=== PATIENT | female | born 1965 | race African-American/Black ===

== ENCOUNTER 2017-10-22 17:12 | Emergency (ER) | payer OTHER ==
[~2017-10-22] VITALS: Ht 162.6 cm; Wt 60.0 kg
[2017-10-22] MEDS ORDERED: METF500T4 PO (17:18)
[2017-10-22] MEDS ORDERED: SODIUM CHLORIDE 0.9% 1,000 ML IV ONE (18:09)
[2017-10-22] MEDS ORDERED: FAMOTIDINE 20MG/2ML VIAL IV ONE (18:15)
[2017-10-22] MEDS ORDERED: METHYLPREDNISOLONE SOD SUCC 125 MG/2 ML VIAL IV ONE (18:15)
[2017-10-22] MEDS ORDERED: DIPHENHYDRAMINE 50MG/ML VIAL IV ONE (18:15)
[2017-10-22 18:45] LABS: BASOPHILS % 0.1 % (0.0-2.0); EOSINOPHILS % 0.2 % (0.0-5.0); HEMOGLOBIN. 12.9 g/dL (12.0-16.0); LYMPHOCYTES % 8.8 % (20.0-50.0); MEAN CORPUSCULAR HEMOGLOBIN 28.2 pg (28.0-32.0); MEAN CORPUSCULAR VOLUME 87.6 fL (81.0-99.0); MEAN PLATELET VOLUME 9.3 fl (7.4-10.4); MONOCYTES % 6.7 % (2.0-8.0); NEUTROPHILS % 84.2 % (40.0-76.0); PLATELET 205 x1000/uL (130-400); RED BLOOD CELL COUNT 4.57 mill/uL (4.2-5.4); RED CELL DISTRIBUTION WIDTH 13.3 % (11.6-14.6)
[2017-10-22 18:50] LABS: CHLORIDE 104 mEq/L (98-107)
[2017-10-22 18:56] LABS: CARBON DIOXIDE 27 mEq/L (21-32)
[2017-10-22] MEDS ORDERED: IBUPROFEN 600MG TABLET PO ONE (19:15)
[2017-10-22 19:17] VITALS: BP 129/71
== END 2017-10-22 20:30 | disposition home or self-care (01) ==
LOC: ER 17:22
DX: T78.40XA Allergy, unspecified, initial encounter (principal); E78.00 Pure hypercholesterolemia, unspecified; E11.9 Type 2 diabetes mellitus without complications; Z88.0 Allergy status to penicillin
CPT/HCPCS: 36415; 80048; 85025; 96361; 96374; 96375; 99285; J1200; J2930; J3490; J7030

== ENCOUNTER 2017-12-10 11:50 | Inpatient (IN) | payer BC, OTHER ==
[~2017-12-10] VITALS: Ht 157.5 cm; Wt 62.6 kg
[~2017-12-10 11:50] MED LIST: METF500T4 PO
[2017-12-10] MEDS ORDERED: MORPHINE SULFATE 4 MG/ML CPJ (NOT FOR IM USE) IV STA ×2 (12:40→16:29)
[2017-12-10] MEDS ORDERED: ONDANSETRON HCL 4MG/2ML VIAL IV STA ×2 (12:40→16:29)
[2017-12-10 13:20] LABS: BASOPHILS % 0.3 % (0.0-2.0); EOSINOPHILS % 0.6 % (0.0-5.0); HEMATOCRIT. 42.1 % (36.0-48.0); HEMOGLOBIN. 13.4 g/dL (12.0-16.0); LYMPHOCYTES % 7.3 % (20.0-50.0); MEAN CORPUSCULAR HEMOGLOBIN 27.6 pg (28.0-32.0); MEAN CORPUSCULAR VOLUME 86.6 fL (81.0-99.0); MEAN PLATELET VOLUME 9.6 fl (7.4-10.4); MONOCYTES % 10.6 % (2.0-8.0); NEUTROPHILS % 81.2 % (40.0-76.0); PLATELET 250 x1000/uL (130-400); RED BLOOD CELL COUNT 4.86 mill/uL (4.2-5.4); RED CELL DISTRIBUTION WIDTH 12.6 % (11.6-14.6)
[2017-12-10 13:26] LABS: PROTHROMBIN TIME 10.7 sec (9.4-11.6)
[2017-12-10] MEDS ORDERED: LEVOFLOXACIN 750MG PREMIX 150 ML IV ONE (13:30)
[2017-12-10 14:06] LABS: CARBON DIOXIDE 26 mEq/L (21-32); CHLORIDE 97 mEq/L (98-107); TROPONIN I < 0.02 ng/mL (0.00-0.04)
[2017-12-10 14:13] LABS: BETA HYDROXYBUTYRATE 2.3 mMol/L (0.0-0.3)
[2017-12-10] MEDS ORDERED: SODIUM CHLORIDE 0.9% 1,000 ML IV NR ×2 (14:47)
[2017-12-10 23:30] VITALS: BP 147/84
[2017-12-10] MEDS ORDERED: INSU100I22 SQ (23:57)
[2017-12-10] MEDS ORDERED: CRESTOR PO (23:57)
[2017-12-10] MEDS ORDERED: IBUP-2030 PO (23:58)
[2017-12-11 00:45] VITALS: BP 147/84
[2017-12-11] MEDS ORDERED: IPRATROPIUM/ALBUTEROL 0.5-3(2.5)MG/3ML NEB INH PRN ×2 (02:30→10:45)
[2017-12-11] MEDS ORDERED: ONDANSETRON HCL 4MG/2ML VIAL IV PRN (02:30)
[2017-12-11] MEDS ORDERED: MAGNESIUM/ALUMINUM HYDROXIDE/SIMETHICONE 30ML UDC PO PRN (02:30)
[2017-12-11] MEDS ORDERED: CLONIDINE 0.1MG TABLET PO PRN (02:30)
[2017-12-11] MEDS ORDERED: DOCUSATE SODIUM 100MG CAPSULE PO PRN (02:30)
[2017-12-11] MEDS ORDERED: DEXTROSE 50% WATER 50ML SYRINGE IV PRN (03:15)
[2017-12-11] MEDS: HYDROCODONE/ACETAMINOPHEN 5/325MG TABLET PO PRN ×3 (03:43→20:02)
[2017-12-11] MEDS: SODIUM CHLORIDE 0.9% 1,000 ML IV SCH ×3 (03:47→22:51)
[2017-12-11 04:00] VITALS: BP 145/85
[2017-12-11] MEDS: BLOOD SUGAR DIAGNOSTIC STRIP TEST SCH ×4 (06:16→20:29)
[2017-12-11] MEDS: INSULIN LISPRO 100 UNITS/ML SUBCUT SCH ×4 (06:42→20:59)
[2017-12-11 08:00] VITALS: BP 122/70
[2017-12-11] MEDS: ASPIRIN 81MG EC TABLET PO SCH (08:25)
[2017-12-11] MEDS: ENOXAPARIN 40MG/0.4ML SYR SUBCUT SCH (08:25)
[2017-12-11 10:48] LABS: EOSINOPHILS % 0.1 % (0.0-5.0); HEMATOCRIT. 39.6 % (36.0-48.0); HEMOGLOBIN. 12.6 g/dL (12.0-16.0); LYMPHOCYTES % 7.1 % (20.0-50.0); MEAN CORPUSCULAR HEMOGLOBIN 27.7 pg (28.0-32.0); MEAN PLATELET VOLUME 9.6 fl (7.4-10.4); MONOCYTES % 10.4 % (2.0-8.0); NEUTROPHILS % 82.4 % (40.0-76.0); PLATELET 270 x1000/uL (130-400); RED BLOOD CELL COUNT 4.55 mill/uL (4.2-5.4); RED CELL DISTRIBUTION WIDTH 12.8 % (11.6-14.6)
[2017-12-11 12:39] VITALS: BP 126/68
[2017-12-11 13:25] LABS: CLARITY URINE CLEAR (CLEAR); COLOR URINE YELLOW (YELLOW); KETONES URINE 3+ (NEGATIVE); LEUKOCYTE ESTERASE URINE NEGATIVE (NEGATIVE); NITRITE URINE NEGATIVE (NEGATIVE); OCCULT BLOOD URINE NEGATIVE (NEGATIVE); PROTEIN URINE NEGATIVE (NEGATIVE); UROBILINOGEN URINE 0.2 E.U./dL (0.2-1.0)
[2017-12-11 13:47] LABS: *AMPHETAMINES SCREEN URINE NEGATIVE (NEGATIVE); *BARBITURATES SCREEN URINE NEGATIVE (NEGATIVE); *BENZODIAZEPINES SCREEN URINE NEGATIVE (NEGATIVE); *COCAINE SCREEN URINE NEGATIVE (NEGATIVE); CANNABINOID URINE SCREEN NEGATIVE (NEGATIVE); METHADONE URINE SCREEN NEGATIVE (NEGATIVE); OPIATES URINE SCREEN PRESUMTIVE POSITIVE (NEGATIVE); PHENCYCLIDINE URINE SCREEN NEGATIVE (NEGATIVE)
[2017-12-11] MEDS: IPRATROPIUM/ALBUTEROL 0.5-3(2.5)MG/3ML NEB HHN SCH ×2 (14:49→21:25)
[2017-12-11] MEDS: LEVOFLOXACIN 500MG PREMIX 100 ML IV SCH (14:51)
[2017-12-11 16:00] VITALS: BP 141/82
[2017-12-11 20:00] VITALS: BP 131/84
[2017-12-12] VITALS: BP 123/66
[2017-12-12] MEDS: HYDROCODONE/ACETAMINOPHEN 5/325MG TABLET PO PRN ×3 (00:09→14:48)
[2017-12-12] MEDS: IPRATROPIUM/ALBUTEROL 0.5-3(2.5)MG/3ML NEB HHN SCH ×4 (02:41→21:49)
[2017-12-12 04:00] VITALS: BP 118/71
[2017-12-12] MEDS: BLOOD SUGAR DIAGNOSTIC STRIP TEST SCH ×4 (06:15→21:12)
[2017-12-12] MEDS: INSULIN LISPRO 100 UNITS/ML SUBCUT SCH ×4 (06:42→21:30)
[2017-12-12 07:08] LABS: HEMATOCRIT. 38.9 % (36.0-48.0); HEMOGLOBIN. 12.6 g/dL (12.0-16.0); MEAN CORPUSCULAR HEMOGLOBIN 27.9 pg (28.0-32.0); MEAN CORPUSCULAR VOLUME 86.4 fL (81.0-99.0); MEAN PLATELET VOLUME 9.2 fl (7.4-10.4); PLATELET 275 x1000/uL (130-400); RED CELL DISTRIBUTION WIDTH 12.9 % (11.6-14.6)
[2017-12-12 08:00] VITALS: BP 139/76
[2017-12-12] MEDS: ASPIRIN 81MG EC TABLET PO SCH (08:14)
[2017-12-12] MEDS: ENOXAPARIN 40MG/0.4ML SYR SUBCUT SCH (08:15)
[2017-12-12 08:41] LABS: CARBON DIOXIDE 23 mEq/L (21-32); CHLORIDE 101 mEq/L (98-107); HDL CHOLESTEROL 23 mg/dL (40-59); LDL CHOLESTEROL 62 mg/dL (5-100)
[2017-12-12 09:01] LABS: PLATELET ESTIMATE NORMAL
[2017-12-12] MEDS: ACETAMINOPHEN 325MG TABLET PO PRN ×2 (11:01→21:29)
[2017-12-12 12:00] VITALS: BP 142/87
[2017-12-12] MEDS: LEVOFLOXACIN 500MG PREMIX 100 ML IV SCH (13:11)
[2017-12-12 16:00] VITALS: BP 145/96
[2017-12-12] MEDS: SODIUM CHLORIDE 0.9% 1,000 ML IV SCH (16:32)
[2017-12-12] MEDS: KETOROLAC 10MG TABLET PO PRN (17:02)
[2017-12-12 20:00] VITALS: BP 154/95
[2017-12-13] VITALS (7 sets, daily range): BP systolic 136–160; BP diastolic 80–89
[2017-12-13] MEDS: IPRATROPIUM/ALBUTEROL 0.5-3(2.5)MG/3ML NEB HHN SCH ×4 (03:09→20:40)
[2017-12-13] MEDS: KETOROLAC 10MG TABLET PO PRN ×2 (04:10→21:28)
[2017-12-13] MEDS: SODIUM CHLORIDE 0.9% 1,000 ML IV SCH ×2 (06:45→21:08)
[2017-12-13] MEDS: BLOOD SUGAR DIAGNOSTIC STRIP TEST SCH ×4 (06:45→21:11)
[2017-12-13 07:00] LABS: BASOPHILS % 0.3 % (0.0-2.0); EOSINOPHILS % 1.1 % (0.0-5.0); HEMATOCRIT. 36.8 % (36.0-48.0); HEMOGLOBIN. 12.2 g/dL (12.0-16.0); LYMPHOCYTES % 7.1 % (20.0-50.0); MEAN CORPUSCULAR HEMOGLOBIN 28.3 pg (28.0-32.0); MEAN CORPUSCULAR VOLUME 85.3 fL (81.0-99.0); MEAN PLATELET VOLUME 9.6 fl (7.4-10.4); MONOCYTES % 11.1 % (2.0-8.0); NEUTROPHILS % 80.4 % (40.0-76.0); PLATELET 276 x1000/uL (130-400); RED BLOOD CELL COUNT 4.31 mill/uL (4.2-5.4); RED CELL DISTRIBUTION WIDTH 12.8 % (11.6-14.6)
[2017-12-13] MEDS: INSULIN LISPRO 100 UNITS/ML SUBCUT SCH ×4 (07:06→21:23)
[2017-12-13 07:38] LABS: CHLORIDE 100 mEq/L (98-107)
[2017-12-13] MEDS: ENOXAPARIN 40MG/0.4ML SYR SUBCUT SCH (08:20)
[2017-12-13] MEDS: ASPIRIN 81MG EC TABLET PO SCH (08:20)
[2017-12-13 08:27] LABS: CARBON DIOXIDE 26 mEq/L (21-32)
[2017-12-13] MEDS: ACETAMINOPHEN 325MG TABLET PO PRN ×2 (09:29→18:19)
[2017-12-13] MEDS ORDERED: INSULIN GLARGINE UD 100 UNITS/ML SYR SUBCUT SCH (11:30)
[2017-12-13] MEDS: ZINC SULFATE 220 MG ( 50 ) CAPSULE PO SCH (11:40)
[2017-12-13] MEDS: LEVOFLOXACIN 500MG PREMIX 100 ML IV SCH (14:40)
[2017-12-13] MEDS: HYDROCODONE/ACETAMINOPHEN 5/325MG TABLET PO PRN (16:18)
[2017-12-13] MEDS: ASCORBIC ACID 500 MG TABLET PO SCH (21:08)
[2017-12-13] MEDS: INSULIN GLARGINE UD 100 UNITS/ML SYR SUBCUT SCH (21:11)
[2017-12-14] VITALS: BP 146/83
[2017-12-14] MEDS: IPRATROPIUM/ALBUTEROL 0.5-3(2.5)MG/3ML NEB HHN SCH ×4 (03:28→19:55)
[2017-12-14 04:00] VITALS: BP 152/88
[2017-12-14] MEDS: HYDROCODONE/ACETAMINOPHEN 5/325MG TABLET PO PRN ×2 (04:22→19:00)
[2017-12-14] MEDS: BLOOD SUGAR DIAGNOSTIC STRIP TEST SCH ×4 (06:32→21:00)
[2017-12-14] MEDS: INSULIN LISPRO 100 UNITS/ML SUBCUT SCH ×4 (06:48→22:52)
[2017-12-14 08:00] VITALS: BP 140/81
[2017-12-14] MEDS: SODIUM CHLORIDE 0.9% 1,000 ML IV SCH ×2 (09:03→22:38)
[2017-12-14] MEDS: ASPIRIN 81MG EC TABLET PO SCH (09:03)
[2017-12-14] MEDS: ZINC SULFATE 220 MG ( 50 ) CAPSULE PO SCH (09:03)
[2017-12-14] MEDS: ENOXAPARIN 40MG/0.4ML SYR SUBCUT SCH (09:03)
[2017-12-14] MEDS ORDERED: NA PHOS,M-B/NA PHOS,DI-BA ENEMA 118ML PR PRN (09:15)
[2017-12-14] MEDS: LACTULOSE 20G/30ML UDC PO SCH (09:54)
[2017-12-14 12:08] VITALS: BP 143/85
[2017-12-14] MEDS: ASCORBIC ACID 500 MG TABLET PO SCH ×2 (12:27→22:38)
[2017-12-14] MEDS: LEVOFLOXACIN 500MG PREMIX 100 ML IV SCH (13:17)
[2017-12-14] MEDS: ACETAMINOPHEN 325MG TABLET PO PRN (14:26)
[2017-12-14 16:00] VITALS: BP 146/88
[2017-12-14 20:00] VITALS: BP 145/84
[2017-12-14] MEDS: INSULIN GLARGINE UD 100 UNITS/ML SYR SUBCUT SCH (22:39)
[2017-12-14] MEDS: KETOROLAC 10MG TABLET PO PRN (22:53)
[2017-12-15] VITALS: BP 139/76
[2017-12-15] MEDS: IPRATROPIUM/ALBUTEROL 0.5-3(2.5)MG/3ML NEB HHN SCH ×4 (01:52→20:24)
[2017-12-15 04:00] VITALS: BP 148/84
[2017-12-15] MEDS: ACETAMINOPHEN 325MG TABLET PO PRN (05:02)
[2017-12-15] MEDS: BLOOD SUGAR DIAGNOSTIC STRIP TEST SCH ×4 (06:41→20:47)
[2017-12-15] MEDS: INSULIN LISPRO 100 UNITS/ML SUBCUT SCH ×4 (07:00→21:08)
[2017-12-15 08:00] VITALS: BP 139/76
[2017-12-15] MEDS: ZINC SULFATE 220 MG ( 50 ) CAPSULE PO SCH (09:42)
[2017-12-15] MEDS: ASCORBIC ACID 500 MG TABLET PO SCH ×2 (09:42→20:42)
[2017-12-15] MEDS: ASPIRIN 81MG EC TABLET PO SCH (09:42)
[2017-12-15] MEDS: LACTULOSE 20G/30ML UDC PO SCH (09:42)
[2017-12-15] MEDS: ENOXAPARIN 40MG/0.4ML SYR SUBCUT SCH (09:43)
[2017-12-15 12:00] VITALS: BP_SYST 150; BP_DIAS 81; BP_DIAS 87
[2017-12-15] MEDS: GUAIFENESIN 200MG/10ML SUGAR FREE UDC PO PRN (13:06)
[2017-12-15] MEDS: LEVOFLOXACIN 500MG PREMIX 100 ML IV SCH (13:06)
[2017-12-15] MEDS: HYDROCODONE/ACETAMINOPHEN 5/325MG TABLET PO PRN ×2 (13:08→18:57)
[2017-12-15 15:59] VITALS: BP 145/83
[2017-12-15] MEDS: SODIUM CHLORIDE 0.9% 1,000 ML IV SCH (18:58)
[2017-12-15 20:00] VITALS: BP 158/85
[2017-12-15] MEDS: INSULIN GLARGINE UD 100 UNITS/ML SYR SUBCUT SCH (21:08)
[2017-12-16] VITALS: BP 140/83
[2017-12-16] MEDS: IPRATROPIUM/ALBUTEROL 0.5-3(2.5)MG/3ML NEB HHN SCH ×4 (01:19→21:57)
[2017-12-16] MEDS: HYDROCODONE/ACETAMINOPHEN 5/325MG TABLET PO PRN ×2 (02:15→18:39)
[2017-12-16 04:00] VITALS: BP 152/87
[2017-12-16 06:29] LABS: BASOPHILS % 0.2 % (0.0-2.0); EOSINOPHILS % 2.5 % (0.0-5.0); HEMATOCRIT. 35.6 % (36.0-48.0); HEMOGLOBIN. 11.7 g/dL (12.0-16.0); LYMPHOCYTES % 8.3 % (20.0-50.0); MEAN CORPUSCULAR HEMOGLOBIN 27.8 pg (28.0-32.0); MEAN CORPUSCULAR VOLUME 84.1 fL (81.0-99.0); MEAN PLATELET VOLUME 9.9 fl (7.4-10.4); MONOCYTES % 10.1 % (2.0-8.0); NEUTROPHILS % 78.9 % (40.0-76.0); PLATELET 208 x1000/uL (130-400); RED BLOOD CELL COUNT 4.23 mill/uL (4.2-5.4); RED CELL DISTRIBUTION WIDTH 12.6 % (11.6-14.6)
[2017-12-16] MEDS: INSULIN LISPRO 100 UNITS/ML SUBCUT SCH ×4 (06:50→21:39)
[2017-12-16] MEDS: BLOOD SUGAR DIAGNOSTIC STRIP TEST SCH ×4 (06:50→21:40)
[2017-12-16 08:00] VITALS: BP 154/84
[2017-12-16] MEDS: LACTULOSE 20G/30ML UDC PO SCH (08:24)
[2017-12-16] MEDS: ASCORBIC ACID 500 MG TABLET PO SCH ×2 (08:25→21:33)
[2017-12-16] MEDS: ASPIRIN 81MG EC TABLET PO SCH (08:25)
[2017-12-16] MEDS: DIPHENHYDRAMINE 50MG/ML VIAL IV PRN ×2 (08:25→18:32)
[2017-12-16] MEDS: ZINC SULFATE 220 MG ( 50 ) CAPSULE PO SCH (08:26)
[2017-12-16] MEDS: ENOXAPARIN 40MG/0.4ML SYR SUBCUT SCH (08:27)
[2017-12-16 08:37] LABS: CHLORIDE 99 mEq/L (98-107)
[2017-12-16 10:23] LABS: CARBON DIOXIDE 27 mEq/L (21-32)
[2017-12-16 12:00] VITALS: BP 140/81
[2017-12-16 16:00] VITALS: BP 166/94
[2017-12-16 20:00] VITALS: BP 137/81
[2017-12-16] MEDS: INSULIN GLARGINE UD 100 UNITS/ML SYR SUBCUT SCH (22:09)
[2017-12-17] VITALS: BP 144/83
[2017-12-17] MEDS: HYDROCODONE/ACETAMINOPHEN 5/325MG TABLET PO PRN ×3 (03:14→15:43)
[2017-12-17] MEDS: IPRATROPIUM/ALBUTEROL 0.5-3(2.5)MG/3ML NEB HHN SCH ×3 (03:25→14:10)
[2017-12-17 04:00] VITALS: BP 137/66
[2017-12-17 06:50] LABS: BASOPHILS % 0.4 % (0.0-2.0); EOSINOPHILS % 2.6 % (0.0-5.0); HEMATOCRIT. 34.2 % (36.0-48.0); HEMOGLOBIN. 11.2 g/dL (12.0-16.0); LYMPHOCYTES % 10.5 % (20.0-50.0); MEAN CORPUSCULAR HEMOGLOBIN 27.6 pg (28.0-32.0); MEAN CORPUSCULAR VOLUME 84.5 fL (81.0-99.0); MEAN PLATELET VOLUME 10.4 fl (7.4-10.4); MONOCYTES % 11.5 % (2.0-8.0); PLATELET 187 x1000/uL (130-400); RED BLOOD CELL COUNT 4.05 mill/uL (4.2-5.4)
[2017-12-17] MEDS: BLOOD SUGAR DIAGNOSTIC STRIP TEST SCH ×4 (06:54→21:28)
[2017-12-17] MEDS: INSULIN LISPRO 100 UNITS/ML SUBCUT SCH ×4 (06:55→21:55)
[2017-12-17 08:00] VITALS: BP 148/88
[2017-12-17 08:40] LABS: CARBON DIOXIDE 34 mEq/L (21-32); CHLORIDE 98 mEq/L (98-107)
[2017-12-17] MEDS: LACTULOSE 20G/30ML UDC PO SCH (09:00)
[2017-12-17] MEDS: ENOXAPARIN 40MG/0.4ML SYR SUBCUT SCH (09:00)
[2017-12-17] MEDS: DIPHENHYDRAMINE 50MG/ML VIAL IV PRN (09:53)
[2017-12-17] MEDS: ASPIRIN 81MG EC TABLET PO SCH (09:53)
[2017-12-17] MEDS: ASCORBIC ACID 500 MG TABLET PO SCH ×2 (09:53→21:28)
[2017-12-17] MEDS: ZINC SULFATE 220 MG ( 50 ) CAPSULE PO SCH (09:53)
[2017-12-17] MEDS ORDERED: POTASSIUM CHLORIDE 20MEQ TABLET SR PO SCH (14:45)
[2017-12-17] MEDS: GABAPENTIN 300MG CAPSULE PO SCH ×2 (15:42→21:28)
[2017-12-17 16:00] VITALS: BP 130/86
[2017-12-17] MEDS ORDERED: LIDOCAINE 5% PATCH TOP SCH (16:00)
[2017-12-17 16:48] LABS: HEPATITIS B SURFACE ANTIGEN NEGATIVE
[2017-12-17 17:16] LABS: HEPATITIS B CORE AB IGM NEGATIVE
[2017-12-17 17:18] LABS: HEPATITIS A AB IGM NEGATIVE (NEGATIVE)
[2017-12-17 20:00] VITALS: BP 147/79
[2017-12-17] MEDS ORDERED: VALACYCLOVIR HCL 500MG TABLET PO SCH (21:00)
[2017-12-17] MEDS: INSULIN GLARGINE UD 100 UNITS/ML SYR SUBCUT SCH (21:42)
[2017-12-17] MEDS: ACETAMINOPHEN 325MG TABLET PO PRN (21:50)
[2017-12-18] VITALS: BP 126/80
[2017-12-18 04:00] VITALS: BP 127/77
[2017-12-18] MEDS: INSULIN LISPRO 100 UNITS/ML SUBCUT SCH ×4 (05:47→22:06)
[2017-12-18] MEDS: BLOOD SUGAR DIAGNOSTIC STRIP TEST SCH ×4 (05:47→21:46)
[2017-12-18] MEDS: GABAPENTIN 300MG CAPSULE PO SCH ×3 (05:54→21:48)
[2017-12-18 06:48] LABS: BASOPHILS % 0.3 % (0.0-2.0); EOSINOPHILS % 2.5 % (0.0-5.0); HEMATOCRIT. 34.5 % (36.0-48.0); HEMOGLOBIN. 11.3 g/dL (12.0-16.0); LYMPHOCYTES % 10.5 % (20.0-50.0); MEAN CORPUSCULAR HEMOGLOBIN 27.6 pg (28.0-32.0); MEAN CORPUSCULAR VOLUME 84.3 fL (81.0-99.0); MONOCYTES % 10.6 % (2.0-8.0); NEUTROPHILS % 76.1 % (40.0-76.0); RED BLOOD CELL COUNT 4.09 mill/uL (4.2-5.4)
[2017-12-18 08:00] VITALS: BP 125/76
[2017-12-18] MEDS: IPRATROPIUM/ALBUTEROL 0.5-3(2.5)MG/3ML NEB HHN SCH ×3 (08:12→20:14)
[2017-12-18 08:39] LABS: CHLORIDE 100 mEq/L (98-107)
[2017-12-18] MEDS: ASPIRIN 81MG EC TABLET PO SCH (08:54)
[2017-12-18] MEDS: ASCORBIC ACID 500 MG TABLET PO SCH ×2 (08:54→21:48)
[2017-12-18] MEDS: DIPHENHYDRAMINE 50MG/ML VIAL IV PRN ×2 (08:54→22:00)
[2017-12-18] MEDS: LACTULOSE 20G/30ML UDC PO SCH (08:54)
[2017-12-18] MEDS: ZINC SULFATE 220 MG ( 50 ) CAPSULE PO SCH (08:54)
[2017-12-18] MEDS: ENOXAPARIN 40MG/0.4ML SYR SUBCUT SCH (08:55)
[2017-12-18 09:06] LABS: CARBON DIOXIDE 31 mEq/L (21-32)
[2017-12-18 12:00] VITALS: BP 123/82
[2017-12-18 12:34] LABS: BG BASE EXCESS 6.2 mmol/L (-2.0-2.0); BG CARBOXYHEMOGLOBIN 0.7 % (0.5-1.5); BG DEOXYHEMOGLOBIN 10.8 % (0.0-5.0); BG HCO3 ACT 29.9 mmol/L (22.0-26.0); BG METHEMOGLOBIN 0.3 % (0.0-1.5); BG OXYGEN SATURATION 89.1 % (92.0-98.5); BG OXYHEMOGLOBIN 88.2 % (94.0-97.0); BG PCO2 40.1 mmHg (35.0-45.0); BG PH 7.491 (7.350-7.450); BG PO2 52.6 mmHg (75.0-100.0); BG SAMPLE SITE RIGHT RADIAL; BG TOTAL HEMOGLOBIN 12.5 g/dL (12.0-18.0); BG VENT MODE ROOM AIR
[2017-12-18 16:00] VITALS: BP 121/72
[2017-12-18] MEDS: ACETAMINOPHEN 325MG TABLET PO PRN ×2 (18:34→21:48)
[2017-12-18 20:00] VITALS: BP 108/63
[2017-12-18] MEDS: INSULIN GLARGINE UD 100 UNITS/ML SYR SUBCUT SCH (22:05)
[2017-12-19] VITALS: BP 98/60
[2017-12-19] MEDS: IPRATROPIUM/ALBUTEROL 0.5-3(2.5)MG/3ML NEB HHN SCH ×4 (00:55→20:36)
[2017-12-19 04:00] VITALS: BP 133/83
[2017-12-19] MEDS: BLOOD SUGAR DIAGNOSTIC STRIP TEST SCH ×4 (06:20→21:05)
[2017-12-19] MEDS: INSULIN LISPRO 100 UNITS/ML SUBCUT SCH ×4 (06:20→21:04)
[2017-12-19] MEDS: GABAPENTIN 300MG CAPSULE PO SCH ×3 (06:20→21:05)
[2017-12-19 08:25] VITALS: BP 119/74
[2017-12-19] MEDS: ENOXAPARIN 40MG/0.4ML SYR SUBCUT SCH (08:50)
[2017-12-19] MEDS: LACTULOSE 20G/30ML UDC PO SCH (08:50)
[2017-12-19] MEDS: ZINC SULFATE 220 MG ( 50 ) CAPSULE PO SCH (08:50)
[2017-12-19] MEDS: ASCORBIC ACID 500 MG TABLET PO SCH ×2 (08:50→21:05)
[2017-12-19] MEDS: ASPIRIN 81MG EC TABLET PO SCH (08:50)
[2017-12-19] MEDS: ACETAMINOPHEN 325MG TABLET PO PRN ×2 (11:29→17:35)
[2017-12-19 12:00] VITALS: BP 127/78
[2017-12-19 16:20] VITALS: BP 108/69
[2017-12-19 19:12] LABS: ANTI-NUCLEAR ANTIBODIES DIRECT Negative (Negative)
[2017-12-19 20:00] VITALS: BP 101/58
[2017-12-19] MEDS: INSULIN GLARGINE UD 100 UNITS/ML SYR SUBCUT SCH (21:04)
[2017-12-20] VITALS: BP 108/69
[2017-12-20] MEDS: ACETAMINOPHEN 325MG TABLET PO PRN ×2 (03:31→13:27)
[2017-12-20 03:33] VITALS: BP 104/66
[2017-12-20] MEDS: GABAPENTIN 300MG CAPSULE PO SCH ×3 (06:36→21:44)
[2017-12-20] MEDS: BLOOD SUGAR DIAGNOSTIC STRIP TEST SCH ×4 (06:38→21:39)
[2017-12-20] MEDS: INSULIN LISPRO 100 UNITS/ML SUBCUT SCH ×4 (06:42→21:43)
[2017-12-20] MEDS: IPRATROPIUM/ALBUTEROL 0.5-3(2.5)MG/3ML NEB HHN SCH ×4 (08:03→21:46)
[2017-12-20 08:13] LABS: DRVVT LA 39.3 sec (0.0-47.0); LUPUS ANTICOAG INTERPRETATION Comment: (.)
[2017-12-20 08:21] VITALS: BP 92/64
[2017-12-20] MEDS: ZINC SULFATE 220 MG ( 50 ) CAPSULE PO SCH (08:30)
[2017-12-20] MEDS: LACTULOSE 20G/30ML UDC PO SCH (08:31)
[2017-12-20] MEDS: ENOXAPARIN 40MG/0.4ML SYR SUBCUT SCH (08:31)
[2017-12-20] MEDS: ASCORBIC ACID 500 MG TABLET PO SCH ×2 (08:31→21:45)
[2017-12-20] MEDS: ASPIRIN 81MG EC TABLET PO SCH (08:31)
[2017-12-20] MEDS: GUAIFENESIN 200MG/10ML SUGAR FREE UDC PO PRN (10:29)
[2017-12-20 12:00] VITALS: BP 155/84
[2017-12-20 13:11] LABS: ANTI-MYELOPEROXIDASE AB < 9.0 U/mL (0.0-9.0); ANTI-PROTEINASE 3 ABS < 3.5 U/mL (0.0-3.5)
[2017-12-20 15:07] LABS: ATYPICAL P-ANCA <1:20 titer (Neg:<1:20); CYTOPLASMIC C-ANCA <1:20 titer (Neg:<1:20); PERINUCLEAR P-ANCA <1:20 titer (Neg:<1:20)
[2017-12-20] MEDS ORDERED: DOXYCYCLINE HYCLATE 100MG CAPSULE PO SCH (15:14)
[2017-12-20 16:00] VITALS: BP 112/78
[2017-12-20 16:15] LABS: HEMATOCRIT. 35.5 % (36.0-48.0); HEMOGLOBIN. 11.2 g/dL (12.0-16.0); MEAN CORPUSCULAR HEMOGLOBIN 26.9 pg (28.0-32.0); MEAN CORPUSCULAR VOLUME 85.4 fL (81.0-99.0); MEAN PLATELET VOLUME 9.8 fl (7.4-10.4); PLATELET 185 x1000/uL (130-400); RED BLOOD CELL COUNT 4.15 mill/uL (4.2-5.4); RED CELL DISTRIBUTION WIDTH 12.9 % (11.6-14.6)
[2017-12-20 17:11] LABS: PLATELET ESTIMATE NORMAL
[2017-12-20] MEDS: AZTREONAM 1 G in DEXTROSE 5% WATER 50 ML IV SCH (17:46)
[2017-12-20 20:00] VITALS: BP 120/78
[2017-12-20] MEDS ORDERED: VANCOMYCIN 1250MG in DEXTROSE 5% WATER 250ML IV NR (21:30)
[2017-12-20] MEDS: INSULIN GLARGINE UD 100 UNITS/ML SYR SUBCUT SCH (21:44)
[2017-12-20] MEDS: HYDROCODONE/APAP 7.5/325MG 1 TAB TABLET PO PRN (21:45)
[2017-12-21] VITALS: BP 139/75
[2017-12-21] MEDS: IPRATROPIUM/ALBUTEROL 0.5-3(2.5)MG/3ML NEB HHN SCH ×4 (01:00→22:10)
[2017-12-21] MEDS: AZTREONAM 1 G in DEXTROSE 5% WATER 50 ML IV SCH ×3 (01:01→17:20)
[2017-12-21 04:00] VITALS: BP 120/85
[2017-12-21] MEDS: GABAPENTIN 300MG CAPSULE PO SCH ×3 (06:43→21:14)
[2017-12-21] MEDS: BLOOD SUGAR DIAGNOSTIC STRIP TEST SCH ×4 (06:43→21:00)
[2017-12-21] MEDS: INSULIN LISPRO 100 UNITS/ML SUBCUT SCH ×4 (06:44→21:23)
[2017-12-21 07:16] LABS: BASOPHILS % 0.3 % (0.0-2.0); EOSINOPHILS % 1.8 % (0.0-5.0); HEMATOCRIT. 33.7 % (36.0-48.0); HEMOGLOBIN. 10.9 g/dL (12.0-16.0); LYMPHOCYTES % 11.9 % (20.0-50.0); MEAN CORPUSCULAR HEMOGLOBIN 27.3 pg (28.0-32.0); MEAN CORPUSCULAR VOLUME 84.3 fL (81.0-99.0); MEAN PLATELET VOLUME 9.9 fl (7.4-10.4); MONOCYTES % 7.3 % (2.0-8.0); NEUTROPHILS % 78.7 % (40.0-76.0); PLATELET 293 x1000/uL (130-400); RED BLOOD CELL COUNT 3.99 mill/uL (4.2-5.4); RED CELL DISTRIBUTION WIDTH 13.1 % (11.6-14.6)
[2017-12-21 07:43] LABS: CHLORIDE 99 mEq/L (98-107)
[2017-12-21 07:54] LABS: CARBON DIOXIDE 30 mEq/L (21-32); CREATINE KINASE 47 IU/L (26-192)
[2017-12-21 08:00] VITALS: BP 127/76
[2017-12-21] MEDS: ASPIRIN 81MG EC TABLET PO SCH (08:21)
[2017-12-21] MEDS: DOXYCYCLINE HYCLATE 100MG CAPSULE PO SCH ×2 (08:21→21:14)
[2017-12-21] MEDS: ASCORBIC ACID 500 MG TABLET PO SCH ×2 (08:21→21:13)
[2017-12-21] MEDS: ENOXAPARIN 40MG/0.4ML SYR SUBCUT SCH (08:21)
[2017-12-21] MEDS: ZINC SULFATE 220 MG ( 50 ) CAPSULE PO SCH (08:21)
[2017-12-21] MEDS: LACTULOSE 20G/30ML UDC PO SCH (08:21)
[2017-12-21] MEDS ORDERED: VANCOMYCIN 1 G PREMIX 200 ML IV SCH (09:30)
[2017-12-21 10:25] LABS: TROPONIN I < 0.02 ng/mL (0.00-0.04)
[2017-12-21 12:00] VITALS: BP 135/90
[2017-12-21 15:34] VITALS: BP 114/64
[2017-12-21] MEDS: VANCOMYCIN 1 G PREMIX 200 ML IV SCH (17:20)
[2017-12-21 20:00] VITALS: BP 111/66
[2017-12-21] MEDS: HYDROCODONE/APAP 7.5/325MG 1 TAB TABLET PO PRN (20:16)
[2017-12-21] MEDS: INSULIN GLARGINE UD 100 UNITS/ML SYR SUBCUT SCH (21:22)
[2017-12-22 00:45] VITALS: BP 102/59
[2017-12-22] MEDS: HYDROCODONE/APAP 7.5/325MG 1 TAB TABLET PO PRN ×2 (02:04→18:12)
[2017-12-22] MEDS: AZTREONAM 1 G in DEXTROSE 5% WATER 50 ML IV SCH ×3 (02:05→18:03)
[2017-12-22] MEDS: IPRATROPIUM/ALBUTEROL 0.5-3(2.5)MG/3ML NEB HHN SCH ×3 (02:53→21:34)
[2017-12-22 04:15] LABS: BASOPHILS % 0.4 % (0.0-2.0); HEMOGLOBIN. 10.5 g/dL (12.0-16.0); LYMPHOCYTES % 17.9 % (20.0-50.0); MEAN CORPUSCULAR HEMOGLOBIN 27.6 pg (28.0-32.0); MEAN CORPUSCULAR VOLUME 84.3 fL (81.0-99.0); MEAN PLATELET VOLUME 8.3 fl (7.4-10.4); MONOCYTES % 9.4 % (2.0-8.0); NEUTROPHILS % 70.3 % (40.0-76.0); PLATELET 452 x1000/uL (130-400); RED CELL DISTRIBUTION WIDTH 13.3 % (11.6-14.6)
[2017-12-22 04:27] LABS: CARBON DIOXIDE 32 mEq/L (21-32); CHLORIDE 99 mEq/L (98-107); VANCOMYCIN TROUGH 10.5 ug/mL (5.0-10.0)
[2017-12-22] MEDS: GABAPENTIN 300MG CAPSULE PO SCH ×3 (05:07→21:17)
[2017-12-22] MEDS: ACETAMINOPHEN 325MG TABLET PO PRN (05:07)
[2017-12-22] MEDS: VANCOMYCIN 1 G PREMIX 200 ML IV SCH ×3 (05:07→22:10)
[2017-12-22] MEDS: BLOOD SUGAR DIAGNOSTIC STRIP TEST SCH ×4 (06:50→21:08)
[2017-12-22 08:00] VITALS: BP 127/75
[2017-12-22] MEDS: ZINC SULFATE 220 MG ( 50 ) CAPSULE PO SCH (08:09)
[2017-12-22] MEDS: ASPIRIN 81MG EC TABLET PO SCH (08:09)
[2017-12-22] MEDS: ENOXAPARIN 40MG/0.4ML SYR SUBCUT SCH (08:09)
[2017-12-22] MEDS: DOXYCYCLINE HYCLATE 100MG CAPSULE PO SCH ×2 (08:09→21:17)
[2017-12-22] MEDS: ASCORBIC ACID 500 MG TABLET PO SCH ×2 (08:09→21:17)
[2017-12-22] MEDS: LACTULOSE 20G/30ML UDC PO SCH (08:09)
[2017-12-22] MEDS: BUDESONIDE 0.5MG/2ML NEB HHN SCH ×2 (10:00→21:00)
[2017-12-22 10:25] LABS: BG BASE EXCESS 7.2 mmol/L (-2.0-2.0); BG CARBOXYHEMOGLOBIN 0.3 % (0.5-1.5); BG DEOXYHEMOGLOBIN 2.9 % (0.0-5.0); BG HCO3 ACT 32.7 mmol/L (22.0-26.0); BG METHEMOGLOBIN 0.3 % (0.0-1.5); BG OXYGEN SATURATION 97.1 % (92.0-98.5); BG OXYHEMOGLOBIN 96.5 % (94.0-97.0); BG PCO2 50.1 mmHg (35.0-45.0); BG PH 7.432 (7.350-7.450); BG PO2 92.2 mmHg (75.0-100.0); BG SAMPLE SITE RIGHT RADIAL; BG TOTAL HEMOGLOBIN 11.8 g/dL (12.0-18.0); BG VENT MODE NASAL CANNULA
[2017-12-22] MEDS: INSULIN LISPRO 100 UNITS/ML SUBCUT SCH ×3 (11:32→21:19)
[2017-12-22 12:00] VITALS: BP 121/89
[2017-12-22 16:30] VITALS: BP 144/101
[2017-12-22] MEDS: INSULIN GLARGINE UD 100 UNITS/ML SYR SUBCUT SCH (22:11)
[2017-12-23] VITALS: BP 101/59
[2017-12-23] MEDS: AZTREONAM 1 G in DEXTROSE 5% WATER 50 ML IV SCH ×3 (01:39→16:58)
[2017-12-23 04:51] VITALS: BP 98/62
[2017-12-23] MEDS: GABAPENTIN 300MG CAPSULE PO SCH ×2 (05:31→16:57)
[2017-12-23] MEDS: VANCOMYCIN 1 G PREMIX 200 ML IV SCH (05:31)
[2017-12-23] MEDS: BLOOD SUGAR DIAGNOSTIC STRIP TEST SCH ×3 (06:19→16:57)
[2017-12-23] MEDS: INSULIN LISPRO 100 UNITS/ML SUBCUT SCH ×3 (06:20→16:58)
[2017-12-23 08:00] VITALS: BP 108/68
[2017-12-23] MEDS: ZINC SULFATE 220 MG ( 50 ) CAPSULE PO SCH (08:39)
[2017-12-23] MEDS: DOXYCYCLINE HYCLATE 100MG CAPSULE PO SCH (08:39)
[2017-12-23] MEDS: ASCORBIC ACID 500 MG TABLET PO SCH (08:39)
[2017-12-23] MEDS: ASPIRIN 81MG EC TABLET PO SCH (08:39)
[2017-12-23] MEDS: LACTULOSE 20G/30ML UDC PO SCH (08:39)
[2017-12-23] MEDS: ENOXAPARIN 40MG/0.4ML SYR SUBCUT SCH (08:40)
[2017-12-23 09:10] LABS: BASOPHILS % 0.4 % (0.0-2.0); EOSINOPHILS % 2.2 % (0.0-5.0); HEMATOCRIT. 34.1 % (36.0-48.0); HEMOGLOBIN. 10.9 g/dL (12.0-16.0); LYMPHOCYTES % 15.8 % (20.0-50.0); MEAN CORPUSCULAR HEMOGLOBIN 26.9 pg (28.0-32.0); MEAN CORPUSCULAR VOLUME 83.8 fL (81.0-99.0); MONOCYTES % 7.9 % (2.0-8.0); NEUTROPHILS % 73.7 % (40.0-76.0); PLATELET 530 x1000/uL (130-400); RED BLOOD CELL COUNT 4.07 mill/uL (4.2-5.4)
[2017-12-23] MEDS: IPRATROPIUM/ALBUTEROL 0.5-3(2.5)MG/3ML NEB HHN SCH ×3 (09:36→13:33)
[2017-12-23 09:55] LABS: CARBON DIOXIDE 31 mEq/L (21-32); CHLORIDE 99 mEq/L (98-107)
[2017-12-23 10:23] LABS: BG BASE EXCESS 6.9 mmol/L (-2.0-2.0); BG CARBOXYHEMOGLOBIN 0.6 % (0.5-1.5); BG DEOXYHEMOGLOBIN 11.2 % (0.0-5.0); BG FRACTION INSPIRED OXYGEN 21; BG HCO3 ACT 31.7 mmol/L (22.0-26.0); BG METHEMOGLOBIN 0.2 % (0.0-1.5); BG OXYGEN SATURATION 88.7 % (92.0-98.5); BG PCO2 45.7 mmHg (35.0-45.0); BG PH 7.459 (7.350-7.450); BG PO2 51.2 mmHg (75.0-100.0); BG SAMPLE SITE RIGHT BRACHIAL; BG TOTAL HEMOGLOBIN 13.2 g/dL (12.0-18.0); BG VENT MODE ROOM AIR
[2017-12-23 12:00] VITALS: BP 112/67
[2017-12-23] MEDS: BUDESONIDE 0.5MG/2ML NEB HHN SCH (13:32)
[2017-12-23 15:55] VITALS: BP 118/68
[2017-12-23 17:30] VITALS: BP 118/76
== END 2017-12-23 19:00 | disposition home health service (06) | DRG 871 ==
LOC: ER 12:19 → 8WST 18:04 → EDBEDREQ 18:07 → ENRESERV 20:09 → 8WST 12-11 00:28
PROVIDERS: ADMIT Hospitalist; ATTEND Hospitalist
DX: A41.9 Sepsis, unspecified organism (principal); J96.00 Acute respiratory failure, unspecified whether with hypoxia or hypercapnia; J18.1 Lobar pneumonia, unspecified organism; Z99.81 Dependence on supplemental oxygen; E46 Unspecified protein-calorie malnutrition; E87.1 Hypo-osmolality and hyponatremia; J44.0 Chronic obstructive pulmonary disease with (acute) lower respiratory infection; E78.00 Pure hypercholesterolemia, unspecified; E11.65 Type 2 diabetes mellitus with hyperglycemia; E78.5 Hyperlipidemia, unspecified; F17.210 Nicotine dependence, cigarettes, uncomplicated; I10 Essential (primary) hypertension; K59.00 Constipation, unspecified; L27.0 Generalized skin eruption due to drugs and medicaments taken internally; L50.9 Urticaria, unspecified; Z83.3 Family history of diabetes mellitus; Z88.0 Allergy status to penicillin; Z91.013 Allergy to seafood; Z79.84 Long term (current) use of oral hypoglycemic drugs; Z68.25 Body mass index [BMI] 25.0-25.9, adult
CPT/HCPCS: 36415; 36600; 71045; 71101; 80048; 80053; 80061; 80076; 80202; 80305; 81001; 82010; 82375; 82550; 82805; 82962; 83036; 83520; 83605; 83690; 83735; 83880; 84484; 85025; 85610; 85613; 85732; 86038; 86256; 86431; 86635; 86703; 86705; 86709; 86803; 87040; 87070; 87086; 87340; 87804; 93005; 93970; 94640; 94664; 94667; 96361; 96365; 96366; 96375; 96376; 97116; 97162; 97164; 99285; A6261; J1200; J1650; J1815; J1956; J2270; J2405; J3370; J3490; J7030; J7040; J7060; J7620; J7626

== ENCOUNTER 2018-02-19 09:43 | Day surgery (SDC) | payer BC ==
[~2018-02-19] VITALS: Ht 157.5 cm; Wt 64.4 kg
[2018-02-19] VITALS (11 sets, daily range): BP systolic 109–166; BP diastolic 73–99
[~2018-02-19 09:43] MED LIST changes: +CRESTOR PO; +IBUP-2030 PO; +INSU100I22 SQ
[2018-02-19] MEDS ORDERED: FENTANYL CITRATE/PF 50MCG/ML 2ML VIAL ONE (10:26)
[2018-02-19] MEDS ORDERED: LIDOCAINE HCL 1% 20ML VIAL (Pyxis) INJ ONE (10:27)
[2018-02-19] MEDS ORDERED: SODIUM BICARBONATE 4% (2.4MEQ) 5ML VIAL IV ONE (10:27)
[2018-02-19] MEDS ORDERED: HYDROCODONE/ACETAMINOPHEN 5/325MG TABLET PO PRN (11:00)
[2018-02-19] MEDS ORDERED: FENTANYL CITRATE/PF 50MCG/ML 2ML VIAL IV ONE (11:00)
== END 2018-02-19 15:20 | disposition home or self-care (01) ==
LOC: RAD 09:43
PROVIDERS: ATTEND Family Medicine Adult Medicine
DX: J98.11 Atelectasis (principal); I10 Essential (primary) hypertension; E11.40 Type 2 diabetes mellitus with diabetic neuropathy, unspecified; Z79.84 Long term (current) use of oral hypoglycemic drugs; Z79.899 Other long term (current) drug therapy; Z83.3 Family history of diabetes mellitus; Z82.49 Family history of ischemic heart disease and other diseases of the circulatory system; Z80.8 Family history of malignant neoplasm of other organs or systems
CPT/HCPCS: 32405; 71045; 77012; 88305; 88312; J3010; J3490; J7050

== ENCOUNTER 2024-10-05 21:24 | Emergency (ER) | payer BC, OTHER ==
[~2024-10-05] VITALS: Ht 157.5 cm; Wt 61.6 kg
[~2024-10-05 21:24] MED LIST changes: +METF-414 PO; -METF500T4 PO
[2024-10-05 21:42] VITALS: TEMP 98.2; O2SAT 98
[2024-10-05] MEDS ORDERED: IBUP-2029 MT (23:22)
[2024-10-05 23:45] VITALS: BP 136/75; PULSE 94; RESP 16
[2024-10-05] MEDS: IBUPROFEN 600MG TABLET PO ONE (23:45)
== END 2024-10-06 00:04 | disposition home or self-care (01) ==
LOC: ER 21:24
DX: S50.01XA Contusion of right elbow, initial encounter (principal); M25.531 Pain in right wrist; M25.511 Pain in right shoulder; E11.9 Type 2 diabetes mellitus without complications; I10 Essential (primary) hypertension; E78.00 Pure hypercholesterolemia, unspecified; Z88.0 Allergy status to penicillin; Z98.890 Other specified postprocedural states; Z79.899 Other long term (current) drug therapy
CPT/HCPCS: 73030; 73080; 73110; 99284